=== PATIENT | female | born 1945 | race Caucasian/White ===

== ENCOUNTER → 2017-08-03 | Outpatient (CLI) | payer OTHER | LOC: M.ULTRA 09:58 | DX: N63.10 Unspecified lump in the right breast, unspecified quadrant (principal); N63.20 Unspecified lump in the left breast, unspecified quadrant ==

== ENCOUNTER → 2018-05-10 | Outpatient (CLI) | payer OTHER ==
--- NOTE | 2018-05-10 14:42 | 2DMMODE ---
[place] [address] 2 D/M-MODE ECHOCARDIOGRAM Name: CHE PARMAR Room: [facility]#: [id number] Admission: 05/10/18 Attend Phys: Parisa Vega Discharge: Date of : 45 Date of Service: 05/10/18 1442 Report #: [id number] THIS REPORT FOR: //name// APPROVED REPORT Study performed: 05/10/2018 13:01:32 EXAM: Comprehensive 2D, Doppler, and color-flow Echocardiogram Patient Location: Out-Patient BSA: 1.87 HR: 50 bpm BP: 132/66 mmHg Other Information Study Quality: Good Indications Murmur 2D Dimensions IVSd: 12.83 (7-11mm) LVOT Diam: 20.88 (18-24mm) LVDd: 46.32 mm PWd: 10.79 (7-11mm) Ascending Ao: 35.48 (22-36mm) LVDs: 30.57 (25-40mm) Aortic Root: 28.69 mm Volumes Left Atrial Volume (Systole) LA ESV Index: 19.90 mL/m2 Aortic Valve AoV Peak Calderon.: 1.48 m/s AO Peak Gr.: 8.75 mmHg LVOT Max P.38 mmHg AO Mean Gr.: 5.05 mmHg LVOT Mean P.53 mmHg LVOT Max V: 0.92 m/s AO V2 VTI: 29.91 cm LVOT Mean V: 0.56 m/s MARY (VTI): 2.29 cm2 LVOT V1 VTI: 19.99 cm AI [place]: 1.22 m/s2 AI PHT: 755.79 ms Mitral Valve E/A Ratio: 0.52 MV Decel. Time: 356.37 ms MV E Max Calderon.: 0.63 m/[place] [address] 2 D/M-MODE ECHOCARDIOGRAM Name: CHE PARMAR Room: [facility]#: [id number] Admission: 05/10/18 Attend Phys: Parisa Vega Discharge: Date of : 45 Date of Service: 05/10/18 1442 Report #: [id number] MV PHT: 103.35 ms MVA (PHT): 2.13 cm2 TDI E/Lateral E': 7.88 E/Medial E': 7.88 Medial E' Calderon.: 0.08 m/s Lateral E' Calderon.: 0.08 m/s Pulmonary Valve PV Peak Calderon.: 0.85 m/s PV Peak Gr.: 2.89 mmHg Tricuspid Valve RAP Estimate: 5.00 mmHg TR Peak Gr.: 19.29 mmHg RVSP: 24.29 mmHg PA Pressure: 24.29 mmHg Left Ventricle The left ventricle is normal size. There is normal LV segmental wall motion. There is normal left ventricular wall thickness. Left ventricular systolic function is normal. The left ventricular ejection fraction is within the normal range. LVEF is 55-60%. Grade I - abnormal relaxation pattern. Right Ventricle The right ventricle is normal size. The right ventricular systolic function is normal. Atria The left atrium size is normal. The right atrium size is normal. Aortic Valve The aortic valve is normal in structure. Mild aortic regurgitation. There is no aortic valvular stenosis. Mitral Valve The mitral valve is normal in structure. Mild mitral regurgitation. No evidence of mitral valve stenosis. Tricuspid Valve The tricuspid valve is normal in structure. Mild tricuspid regurgitation. estimated pa pressure 30 mm hg Pulmonic Valve The pulmonary valve is normal in structure. There is no pulmonic [place] [address] 2 D/M-MODE ECHOCARDIOGRAM Name: TANVIRWILLIAMCHE Davis Room: [facility]#: [id number] Admission: 05/10/18 Attend Phys: Parisa Vega Discharge: Date of : 45 Date of Service: 05/10/18 1442 Report #: [id number] Great Vessels The aortic root is normal in size. IVC is normal in size and collapses >50% with inspiration. Pericardium There is no pericardial effusion. <Conclusion> Left ventricular systolic function is normal. The left ventricular ejection fraction is within the normal range. Mild aortic regurgitation. Mild mitral regurgitation. <ELECTRONICALLY SIGNED> By: Milton Monterroso MD, [facility] 05/10/18 1442 1442 [id number] Milton Monterroso MD, FACC /INF
== END ==
LOC: M.CRD 12:40
DX: I08.0 Rheumatic disorders of both mitral and aortic valves (principal); R01.1 Cardiac murmur, unspecified

== ENCOUNTER → 2019-10-30 | Outpatient (CLI) | payer OTHER | LOC: M.ULTRA 10-06 09:44 | PROVIDERS: ATTEND Nurse Practitioner Family | DX: M85.88 Other specified disorders of bone density and structure, other site (principal); Z78.0 Asymptomatic menopausal state; N60.19 Diffuse cystic mastopathy of unspecified breast; Z12.39 Encounter for other screening for malignant neoplasm of breast; Z13.820 Encounter for screening for osteoporosis ==

== ENCOUNTER → 2020-05-15 | Outpatient (CLI) | payer OTHER | LOC: M.CT 09:16 | PROVIDERS: ATTEND Nurse Practitioner Family | DX: E78.2 Mixed hyperlipidemia (principal) ==